=== PATIENT | male | born 1950 | race Caucasian/White ===

== ENCOUNTER → 2017-08-26 | Day surgery (SDC) | payer OTHER ==
[~2017-08-26] MED LIST: ASPIRIN81 MG PO; LIDOCAINE HCL 2% LOCAL INJ 5 ML SDV VIAL INJ ONE; LOVASTATIN20 MG PO; MIDAZOLAM HCL 2 MG/2 ML VIAL ONE; PROPOFOL IV EMULSION 10 MG/ML 50 ML VIAL ONE; SIMVASTATIN40 MG PO; ZOLPIDEM TARTRA10 MG PO
--- OUTSIDE RECORDS SUMMARY | 2017-08-26 07:06 | XMS REPORT | Clinical Summary ---
Author Author Garth [facility] Organization [facility] Address Unknown Phone Unavailable Care Team Providers Care Biofuels Manager Name Role Phone Tano Gayle MD PCP Allergies No Known Allergies Current Medications Prescription Sig. Disp. Refills Start End Date Status Date simvastatin (ZOCOR) 10 MG Take 10 mg by mouth Active tablet nightly. levothyroxine (SYNTHROID, Take 125 mcg by mouth Active LEVOXYL) 125 mcg tablet every morning. aspirin (ECOTRIN) 81 MG Take 81 mg by mouth Active enteric coated tablet daily. Active Problems Problem Noted Date Abdominal pain, chronic, right upper quadrant 08/15/2016 Encounters Date Type Specialty Care Team Description 11/12/2016 Refill General Surgery Nyla Monzon MD 10/10/2016 Hospital Radiology Nyla Monzon MD Cholecystitis Encounter 09/18/2016 Office Visit General Surgery Nyla Monzon MD Cholecystitis (Primary Dx) after 08/25/2016 Family History Medical History Relation Name Comments Ulcers Father Stroke Mother Relation Name Status Comments Father Mother Social History Tobacco Use Types Packs/Day Years Used Date Never Smoker Alcohol Use Drinks/Week oz/Week Comments Yes 1 Cans of 0.6 beer Sex Assigned at Date Recorded Not on file Last Filed Vital Signs Vital Sign Reading Time Taken Blood Pressure 130/76 09/18/2016 2:26 PM CDT Pulse 84 09/18/2016 2:26 PM CDT Temperature 36.9 C (98.4 F) 09/18/2016 2:26 PM CDT Respiratory Rate - - Oxygen Saturation - - Inhaled Oxygen - - Concentration Weight 116 kg (255 lb) 09/18/2016 2:26 PM CDT Height 185.4 cm (6' 1") 09/18/2016 2:26 PM CDT Body Mass Index 33.64 09/18/2016 2:26 PM CDT Plan of Treatment Health Maintenance Due Date Last Done Comments COLON CANCER SCREENING 06/23/1999 SHINGRIX VACCINE (#1) 06/23/1999 ZOSTER VACCINE 2009 PNEUMOCOCCAL 2014 POLYSACCHARIDE VACCINE AGE 65 AND OVER PNEUMOCOCCAL-13 2014 INFLUENZA VACCINE 10/29/2017 Implants Implanted Type Area Ceramic Design Engineer Device Expiration Model / Identifier Date Serial / Lot District Manager Clip Ligamax Endoscpc [facility] N/A: ETHICON 05/28/2021 EL5ML / Spu 5mm Med - [id number] Clips for Abdomen ENDO-SURGERY / Implanted: Qty: 1 on 08/15/2016 by Internal [id number] Nyla Monzon MD Use Results * [place] Hepatobiliary W Pharm (HIDA Scan w Pharm) (10/10/2016 9:43 AM) Specimen Performing Laboratory [facility] [address] [place] [id number] Narrative PROCEDURE: [place] HEPATOBILIARY W PHARM (HIDA SCAN W PHARM) INDICATION: K81.9 Cholecystitisunspecified, RUQ PAINACALCULOUS CHOLECYSTITIS SUSPECTED COMPARISON: Gallbladder ultrasound 08/12/2016 TECHNIQUE: The patient was injected with 6 mCi of [id number] and dynamic images of the abdomen were acquired for up to 1 hour. The patient was then injected with intravenous CCK per protocol and imaged for an additional 60 minutes. FINDINGS: Tracer activity is seen within the gallbladder and small bowel by one hour of imaging. With CCK infusion there is prompt contraction of the gallbladder with a calculated ejection fraction of 97%. IMPRESSION: 1.No scintigraphic evidence of acute cholecystitis or common bile duct obstruction. 2.Normal gallbladder response to CCK stimulation. [facility]-[id number] Procedure Note Interface, Radiology Results [facility] - 10/10/2016 11:19 AM CDT PROCEDURE: [place] HEPATOBILIARY W PHARM (HIDA SCAN W PHARM) INDICATION: K81.9 Cholecystitis unspecified, RUQ PAIN ACALCULOUS CHOLECYSTITIS SUSPECTED COMPARISON: Gallbladder ultrasound 08/12/2016 TECHNIQUE: The patient was injected with 6 mCi of [id number] and dynamic images of the abdomen were acquired for up to 1 hour. The patient was then injected with intravenous CCK per protocol and imaged for an additional 60 minutes. FINDINGS: Tracer activity is seen within the gallbladder and small bowel by one hour of imaging. With CCK infusion there is prompt contraction of the gallbladder with a calculated ejection fraction of 97%. IMPRESSION: 1. No scintigraphic evidence of acute cholecystitis or common bile duct obstruction. 2. Normal gallbladder response to CCK stimulation. [facility]-[id number] after 08/25/2016 Insurance Payer Benefit Subscriber ID Type Phone Address Plan / Group TEXAN[employer] TEXANPLUS xxxxxxxxx [facility] Home: [address] [facility] [place] [id number] HAJAEdwin Jorge Personal/F Self 1950 Home: [address] [facility] [place] [id number]
[2017-08-26 07:52] LABS: BASOPHILS # (AUTO) 0.1 (0.0-0.1); EOSINOPHILS # (AUTO) 0.3 (0.0-0.4); EOSINOPHILS % 2.8 % (0.0-6.0); HEMATOCRIT 41.8 % (38.2-49.6); HEMOGLOBIN 13.8 g/dL (14.0-18.0); LYMPHOCYTES # (AUTO) 2.7 (1.0-3.2); MEAN CORPUSCULAR HEMOGLOBIN 27.9 pg (28-32); MEAN CORPUSCULAR VOLUME 84.6 fL (81-99); MONOCYTES # (AUTO) 1.5 (0.2-0.8); MONOCYTES % 16.3 % (4.4-11.3); NEUTROPHILS # (AUTO) 4.7 (2.1-6.9); NEUTROPHILS % 50.7 % (38.7-80.0); PLATELET COUNT 454 x10e3/uL (140-360); RED BLOOD COUNT 4.94 x10e6/uL (4.3-5.7); RED CELL DISTRIBUTION WIDTH 17.7 % (11.7-14.4)
== END | disposition home or self-care (01) ==
LOC: OR 07:01
PROVIDERS: ATTEND Internal Medicine Gastroenterology
DX: K22.2 Esophageal obstruction (principal); K29.50 Unspecified chronic gastritis without bleeding; K21.0 Gastro-esophageal reflux disease with esophagitis; K44.9 Diaphragmatic hernia without obstruction or gangrene; R63.4 Abnormal weight loss; G47.33 Obstructive sleep apnea (adult) (pediatric); I49.1 Atrial premature depolarization; I49.9 Cardiac arrhythmia, unspecified; Z79.82 Long term (current) use of aspirin; Z68.31 Body mass index [BMI] 31.0-31.9, adult; Z90.81 Acquired absence of spleen; Z83.79 Family history of other diseases of the digestive system
CPT/HCPCS: 36415; 43239; 43249; 85025; 93005; J2001; J2250; 43233

== ENCOUNTER → 2017-10-07 | Day surgery (SDC) | payer OTHER ==
[~2017-10-07] MED LIST changes: +FENTANYL CITRATE/PF 100MCG/2 ML INJ ONE; +LEVOTHYROXINE125 MCG PO; -LIDOCAINE HCL 2% LOCAL INJ 5 ML SDV VIAL INJ ONE; +TEMAZEPAM30 MG PO
[2017-10-07 09:50] LABS: BASOPHILS # (AUTO) 0.1 (0.0-0.1); BASOPHILS % 1.8 % (0.0-1.0); EOSINOPHILS # (AUTO) 0.3 (0.0-0.4); EOSINOPHILS % 3.8 % (0.0-6.0); HEMATOCRIT 41.9 % (38.2-49.6); HEMOGLOBIN 13.8 g/dL (14.0-18.0); LYMPHOCYTES # (AUTO) 2.3 (1.0-3.2); LYMPHOCYTES % 30.3 % (18.0-39.1); MEAN CORPUSCULAR HEMOGLOBIN 27.9 pg (28-32); MEAN CORPUSCULAR HGB CONC 32.9 g/dL (31-35); MEAN CORPUSCULAR VOLUME 84.8 fL (81-99); MONOCYTES # (AUTO) 1.2 (0.2-0.8); MONOCYTES % 15.9 % (4.4-11.3); NEUTROPHILS # (AUTO) 3.7 (2.1-6.9); NEUTROPHILS % 48.1 % (38.7-80.0); PLATELET COUNT 465 x10e3/uL (140-360); RED BLOOD COUNT 4.94 x10e6/uL (4.3-5.7); RED CELL DISTRIBUTION WIDTH 16.3 % (11.7-14.4)
== END | disposition home or self-care (01) ==
LOC: OR 08:52
PROVIDERS: ATTEND Internal Medicine Gastroenterology
DX: K22.2 Esophageal obstruction (principal); K21.0 Gastro-esophageal reflux disease with esophagitis; K44.9 Diaphragmatic hernia without obstruction or gangrene; G47.33 Obstructive sleep apnea (adult) (pediatric); E03.9 Hypothyroidism, unspecified; Z79.82 Long term (current) use of aspirin; Z68.31 Body mass index [BMI] 31.0-31.9, adult; Z83.79 Family history of other diseases of the digestive system
CPT/HCPCS: 36415; 43249; 85025; J2250; 43450

== ENCOUNTER → 2017-10-21 | Day surgery (SDC) | payer OTHER ==
[~2017-10-21] MED LIST changes: +LIDOCAINE HCL 2% LOCAL INJ 5 ML SDV VIAL INJ ONE
== END | disposition home or self-care (01) ==
LOC: OR 05:28
PROVIDERS: ATTEND Internal Medicine Gastroenterology
DX: K22.2 Esophageal obstruction (principal); K21.0 Gastro-esophageal reflux disease with esophagitis; K44.9 Diaphragmatic hernia without obstruction or gangrene; G47.33 Obstructive sleep apnea (adult) (pediatric); I10 Essential (primary) hypertension; I49.1 Atrial premature depolarization; Z79.82 Long term (current) use of aspirin; Z68.31 Body mass index [BMI] 31.0-31.9, adult; Z90.81 Acquired absence of spleen; Z96.611 Presence of right artificial shoulder joint; Z83.79 Family history of other diseases of the digestive system
CPT/HCPCS: 43249; J2001; J2250; 43239

== ENCOUNTER 2018-01-07 12:20 | Inpatient (IN) | payer OTHER ==
[~2018-01-07] VITALS: Ht 185.4 cm; Wt 106.8 kg
[~2018-01-07 12:20] MED LIST changes: -FENTANYL CITRATE/PF 100MCG/2 ML INJ ONE; -LIDOCAINE HCL 2% LOCAL INJ 5 ML SDV VIAL INJ ONE; -MIDAZOLAM HCL 2 MG/2 ML VIAL ONE; -PROPOFOL IV EMULSION 10 MG/ML 50 ML VIAL ONE
[2018-01-07] MEDS ORDERED: SODIUM CHLORIDE 0.9% 1000ML 1,000 ML IV STA (12:25)
[2018-01-07] MEDS ORDERED: DEXILANT60 MG PO (12:30)
[2018-01-07] MEDS ORDERED: ASPIRIN 81 MG CHEW TAB PO ONE ×2 (12:30→13:45)
[2018-01-07] MEDS ORDERED: DILTIAZEM HCL 5 MG/ML 5 ML VIAL IV ONE (12:30)
[2018-01-07] MEDS ORDERED: OMEPRAZOLE40 MG PO (12:30)
[2018-01-07] MEDS ORDERED: BENTYL10 MG/1 ML PO (12:31)
[2018-01-07] MEDS ORDERED: DILTIAZEM HCL 5 MG/ML 5 ML VIAL IV STA (13:08)
[2018-01-07 13:13] LABS: BASOPHILS # (AUTO) 0.1 (0.0-0.1); BASOPHILS % 0.7 % (0.0-1.0); EOSINOPHILS # (AUTO) 0.2 (0.0-0.4); EOSINOPHILS % 1.7 % (0.0-6.0); HEMATOCRIT 45.8 % (38.2-49.6); HEMOGLOBIN 14.8 g/dL (14.0-18.0); LYMPHOCYTES # (AUTO) 3.5 (1.0-3.2); LYMPHOCYTES % 29.7 % (18.0-39.1); MEAN CORPUSCULAR HEMOGLOBIN 27.9 pg (28-32); MEAN CORPUSCULAR HGB CONC 32.3 g/dL (31-35); MEAN CORPUSCULAR VOLUME 86.4 fL (81-99); MONOCYTES # (AUTO) 1.5 (0.2-0.8); MONOCYTES % 12.4 % (4.4-11.3); NEUTROPHILS # (AUTO) 6.6 (2.1-6.9); NEUTROPHILS % 55.2 % (38.7-80.0); PLATELET COUNT 469 x10e3/uL (140-360); RED CELL DISTRIBUTION WIDTH 18.6 % (11.7-14.4)
[2018-01-07 13:35] LABS: ALBUMIN 3.9 g/dL (3.5-5.0); ALBUMIN/GLOBULIN RATIO 0.8 (0.8-2.0); ANION GAP 16.6 mmol/L (8-16); CALCIUM 10.1 mg/dL (8.4-10.2); CREATININE, SERUM 1.3 mg/dL (0.72-1.25); MAGNESIUM 1.9 MG/DL (1.3-2.1); POTASSIUM 3.6 mmol/L (3.5-5.1)
[2018-01-07 13:45] LABS: CREATINE KINASE MB 0.9 ng/mL (0-5.0)
[2018-01-07 13:58] LABS: FREE THYROXINE INDEX 2.5384 (1.4-3.8); THYROID STIMULATING HORMONE 6.922 uIU/mL (0.350-4.940)
[2018-01-07 17:25] VITALS: BP 147/98
[2018-01-07 17:47] VITALS: BP 147/98
[2018-01-07 17:49] VITALS: BP 147/98
[2018-01-07] MEDS: METOPROLOL TARTRATE 25 MG TAB PO SCH (18:04)
[2018-01-07] MEDS ORDERED: AMBIEN5 MG PO (19:00)
[2018-01-07 20:00] VITALS: BP 147/98
[2018-01-07 21:58] VITALS: BP 103/64
[2018-01-07] MEDS: ENOXAPARIN SODIUM INJ 100 MG/ML SYR SC SCH (21:59)
[2018-01-08] VITALS (8 sets, daily range): BP systolic 99–138; BP diastolic 59–85
[2018-01-08] MEDS: METOPROLOL TARTRATE 25 MG TAB PO SCH ×4 (00:20→17:45)
[2018-01-08 05:54] LABS: BASOPHILS # (AUTO) 0.1 (0.0-0.1); EOSINOPHILS # (AUTO) 0.5 (0.0-0.4); EOSINOPHILS % 4.3 % (0.0-6.0); HEMATOCRIT 42.2 % (38.2-49.6); HEMOGLOBIN 13.6 g/dL (14.0-18.0); LYMPHOCYTES # (AUTO) 5.5 (1.0-3.2); LYMPHOCYTES % 47.4 % (18.0-39.1); MEAN CORPUSCULAR HEMOGLOBIN 27.6 pg (28-32); MEAN CORPUSCULAR HGB CONC 32.2 g/dL (31-35); MEAN CORPUSCULAR VOLUME 85.8 fL (81-99); MONOCYTES # (AUTO) 1.5 (0.2-0.8); MONOCYTES % 12.9 % (4.4-11.3); NEUTROPHILS % 34.2 % (38.7-80.0); PLATELET COUNT 438 x10e3/uL (140-360); RED BLOOD COUNT 4.92 x10e6/uL (4.3-5.7); RED CELL DISTRIBUTION WIDTH 18.5 % (11.7-14.4)
[2018-01-08 06:27] LABS: CREATINE KINASE MB 0.9 ng/mL (0-5.0)
[2018-01-08 06:44] LABS: ALANINE AMINOTRANSFERASE 21 IU/L (0-55); ALBUMIN 3.5 g/dL (3.5-5.0); ALBUMIN/GLOBULIN RATIO 0.8 (0.8-2.0); ALKALINE PHOSPHATASE 59 IU/L (40-150); ANION GAP 14.1 mmol/L (8-16); BLOOD UREA NITROGEN 17 mg/dL (7-26); BUN/CREATININE RATIO 18 (6-25); CALCIUM 9.8 mg/dL (8.4-10.2); CARBON DIOXIDE 23 mmol/L (22-29); CHLORIDE 105 mmol/L (98-107); CREATININE, SERUM 0.94 mg/dL (0.72-1.25); EST GLOMERULAR FILTRATION RATE > 60 ML/MIN (60-); GLUCOSE 89 mg/dL (74-118); POTASSIUM 4.1 mmol/L (3.5-5.1); SODIUM 138 mmol/L (136-145)
[2018-01-08 08:04] LABS: EOSINOPHILS % (MANUAL) 3 % (0-7); METAMYELOCYTES % (MANUAL) 2 % (0-0)
[2018-01-08 08:05] LABS: HYPOCHROMASIA SLIGHT; LYMPHOCYTES % (MANUAL) 40 % (19-48); MONOCYTES % (MANUAL) 9 % (3.4-9.0); MYELOCYTES % (MANUAL) 5 % (0-0); NEUTROPHILS % (MANUAL) 33 % (40-74); RBC MORPHOLOGY COMMENT ABNORMAL
[2018-01-08 08:06] LABS: ANISOCYTOSIS SLIGHT; HOWELL-JOLLY BODIES FEW; PLATELET ESTIMATE ADEQUATE; PLATELET MORPHOLOGY COMMENT FEW LARGE
[2018-01-08 08:07] LABS: POIKILOCYTOSIS SLIGHT
[2018-01-08] MEDS ORDERED: NON-FORMULARY MEDICATION (Dicyclomine Hcl (Bentyl) 10 MG) PO SCH (08:45)
[2018-01-08] MEDS ORDERED: DICYCLOMINE HCL 10 MG CAP PO PRN (08:45)
--- NOTE | 2018-01-08 09:01 | Consultation ---
DATE OF CONSULTATION: January 08, 2018 CARDIOLOGY CONSULTATION REASON FOR CONSULTATION: AFib, new-onset. HPI: This is a pleasant 67-year-old male that presented with palpitations. According to the patient, he was having difficulty with swallowing. Saw a GI doctor, and they were planning to do a colonoscopy for him. He stated that he was at the outpatient lab doing some preop. They did an EKG and found that he was in AFib with RVR, and he was admitted for further evaluation. He also stated in 2014 he was told he had a history of arrhythmia, but did not know what type. He denied any chest pain, any headache or nausea. He stated off and on he has been having shortness of breath, dizziness and dyspnea with activity. Troponin was negative. EKG showed AFib, irregularly irregular. Chest x-ray showed no cardiopulmonary disease. PAST MEDICAL HISTORY: Arrhythmia, hypothyroidism, GERD, hyperlipidemia, and dysphagia. PAST SURGICAL HISTORY: Right ankle surgery times 2, left knee surgery, appendectomy, splenectomy, right elbow surgery, finger surgery on the right, right shoulder replacement, and back surgery. FAMILY HISTORY: Positive for hypertension. SOCIAL HISTORY: No smoking. No drinking. He lives at home with his dog. MEDICATIONS: He was on simvastatin, omeprazole, levothyroxine, dicyclomine, Ambien, and Dexilant. ALLERGIES: HE IS NOT ALLERGIC TO ANY MEDICATIONS. REVIEW OF SYSTEMS: Negative except as mentioned above. PHYSICAL EXAMINATION VITAL SIGNS: Temperature 97, heart rate 90, blood pressure 134/76, respirations 18, oxygen saturation 98% on room air. GENERAL: He is awake, alert and oriented times 3. HEENT: Mucous membrane moist. NECK: Supple. LUNGS: Bilateral clear to auscultation. CARDIOVASCULAR: Irregularly irregular. ABDOMEN: Soft. NEUROLOGICAL: Intact. EXTREMITIES: With no edema. LABS: Sodium 138, potassium 4.1, chloride 105, CO2 23, BUN 17, creatinine 0.94, glucose 89. White blood cell 11.5, hemoglobin 13.6, hematocrit 42.2, and platelets 438,000. IMPRESSION 1. Atrial fibrillation. 2. Hyperlipidemia. 3. Hypothyroidism. 4. Gastroesophageal reflux disease. ASSESSMENT AND PLAN 1. Heart rate is controlled in the 80s and 90s. He is asymptomatic. 2. Will start him on amiodarone. 3. Pending echogram to assess the LV and the valve function. 4. Will check lipid panel and TSH. 5. I discussed the risks and benefits of p.o. anticoagulation and he agreed. 6. If he is planning to get an inpatient colonoscopy, will go ahead and start p.o. anticoagulation after that. Further cardiac workup pending clinical course. Thank you for this consultation. DICTATED BY RACHEL MOSLEY NP Job#: [id number] ANTONIA
[2018-01-08] MEDS: PANTOPRAZOLE SOD 40 MG TABEC PO SCH (09:04)
[2018-01-08] MEDS: ENOXAPARIN SODIUM INJ 100 MG/ML SYR SC SCH ×2 (09:04→21:26)
[2018-01-08] MEDS: LEVOTHYROXINE SODIUM 125 MCG TAB PO SCH (09:04)
[2018-01-08] MEDS: AMIODARONE HCL 200 MG TAB PO SCH (09:04)
--- NOTE | 2018-01-08 09:13 | History and Physical ---
CHIEF COMPLAINT: New-onset atrial fibrillation. HISTORY: Patient is a 67-year-old male who came to [facility] for EKG showing atrial fibrillation with rapid rate. Therefore, the patient is admitted. He went into the emergency room. Apparently, he is going to have a colonoscopy soon. The patient is otherwise stable. PAST MEDICAL HISTORY: Hyperlipidemia, hypothyroidism, reflux, insomnia. PAST SURGICAL HISTORY: Noncontributory. SOCIAL HISTORY: Patient does not smoke or use alcohol. No recreational drugs. ALLERGIES: NO KNOWN ALLERGY. HOME MEDICATIONS: Dexilant, Bentall, levothyroxine, omeprazole, simvastatin, and Ambien. PHYSICAL EXAMINATION VITAL SIGNS: Temperature is 98, blood pressure is 120/57, pulse rate on admission was 147 with AFib and went up to 171, and now down to 105 with medication, respirations 18. GENERAL: The patient is not in acute distress. He is awake. HEENT: Normocephalic, atraumatic and anicteric. NECK: Supple grossly. PULMONARY: Clear. CARDIOVASCULAR: Irregularly irregular. Rate controlled. ABDOMEN: Soft. Positive bowel sounds. Nontender and nondistended. EXTREMITIES: No cyanosis or edema. NEUROLOGIC: No gross focal deficit. LABORATORY: Sodium is 138, potassium 4.1, chloride 105, bicarb 23, BUN 17, creatinine 0.9, glucose 89. WBC 11.5, hemoglobin 13.6, hematocrit 42.2, and platelets are 438,000. IMPRESSION 1. Atrial fibrillation, new-onset with rapid heart rate, now better controlled. 2. Pending colonoscopy. PLAN: Consultation with GI with Dr. Simpson for colonoscopy. After the colonoscopy, the patient may start anticoagulant therapy depending on if there is any polyps. The patient is otherwise stable at this time. Discussed with the patient at length. Job#: [id number] ANTONIA
--- NOTE | 2018-01-08 20:10 | Consultation ---
DATE OF CONSULTATION: January 08, 2018 HISTORY: This is a 67-year-old gentleman who presented to the hospital because of new-onset atrial fibrillation with rapid ventricular response. Patient apparently supposed to have a screening colonoscopy to be done and therefore GI consult is obtained to do a colonoscopy prior to anticoagulations. At this time, he denies any abdominal pain. He denies any nausea or vomiting. He is mildly anemic, hemoglobin is 13.6. His white count is little bit high. OTHER MEDICAL PROBLEMS: Actually significant for hyperlipidemia, hypothyroidism, reflux, and insomnia. ALLERGIES: NONE. SOCIAL HISTORY: No alcohol use. FAMILY HISTORY: Noncontributory. MEDICATIONS ON ADMISSION: Including Dexilant, Bentyl, levothyroxine, omeprazole, simvastatin, and Ambien. REVIEW OF SYSTEMS: Denies any chest pain at this point. Denies any shortness of breath. Denies any dysphagia or odynophagia. Denies any dysuria, hematuria, or any kind of syncopal episodes. PHYSICAL EXAMINATION: GENERAL: Patient is awake, alert, appeared to be stable, not in acute distress at this point. VITAL SIGNS: Afebrile currently with stable vital signs. HEAD, EYES, EARS, NOSE, AND THROAT: Normocephalic. Sclerae anicteric. NECK: Supple. HEART: Regular. LUNGS: Clear. ABDOMEN: Soft. There is no distention at this point and is nontender. EXTREMITIES: No clubbing. LAB VALUES: WBC of 11.5, hemoglobin of 13.6. CMP is normal. IMPRESSION: 1. Atrial fibrillation with rapid ventricular response. 2. Mild anemia. RECOMMENDATIONS: Continue on the cardiac workup at this point. Proceed with colonoscopy, further evaluation of the anemia. In the meantime, anticoagulations with Lovenox. Job#: [id number] cc:MD SAIRA MCKEON MD
[2018-01-08] MEDS: SIMVASTATIN 40 MG TAB PO SCH (21:26)
[2018-01-09] MEDS: METOPROLOL TARTRATE 25 MG TAB PO SCH ×4 (00:06→18:17)
[2018-01-09 05:30] VITALS: BP 124/78
[2018-01-09 07:52] VITALS: BP 111/71
[2018-01-09] MEDS: ENOXAPARIN SODIUM INJ 100 MG/ML SYR SC SCH ×2 (08:45→21:25)
[2018-01-09] MEDS: AMIODARONE HCL 200 MG TAB PO SCH (08:45)
[2018-01-09] MEDS: LEVOTHYROXINE SODIUM 125 MCG TAB PO SCH (08:45)
[2018-01-09] MEDS: PANTOPRAZOLE SOD 40 MG TABEC PO SCH (08:45)
[2018-01-09 11:51] VITALS: BP 121/86
[2018-01-09 16:01] VITALS: BP 141/87
[2018-01-09 20:00] VITALS: BP 135/62
[2018-01-09 20:05] VITALS: BP 135/62
[2018-01-09] MEDS: SIMVASTATIN 40 MG TAB PO SCH (21:25)
[2018-01-09] MEDS: ZOLPIDEM TARTRATE 5 MG TAB PO PRN (21:45)
[2018-01-10] VITALS (7 sets, daily range): BP systolic 127–141; BP diastolic 58–77
[2018-01-10] MEDS: METOPROLOL TARTRATE 25 MG TAB PO SCH ×4 (00:40→16:30)
[2018-01-10] MEDS ORDERED: INFLUENZA VIRUS VAC SPLIT INJ 0.5 ML SYR IM ONE (07:00)
[2018-01-10] MEDS: ENOXAPARIN SODIUM INJ 100 MG/ML SYR SC SCH ×2 (09:10→21:00)
[2018-01-10] MEDS: AMIODARONE HCL 200 MG TAB PO SCH (09:10)
[2018-01-10] MEDS: PANTOPRAZOLE SOD 40 MG TABEC PO SCH (09:10)
[2018-01-10] MEDS: LEVOTHYROXINE SODIUM 125 MCG TAB PO SCH (09:10)
[2018-01-10] MEDS: SIMVASTATIN 40 MG TAB PO SCH (21:00)
[2018-01-10] MEDS: ZOLPIDEM TARTRATE 5 MG TAB PO PRN (21:05)
[2018-01-11] VITALS (7 sets, daily range): BP systolic 113–165; BP diastolic 61–78
[2018-01-11] MEDS: METOPROLOL TARTRATE 25 MG TAB PO SCH ×5 (01:15→23:17)
[2018-01-11 06:14] LABS: BASOPHILS # (AUTO) 0.1 (0.0-0.1); BASOPHILS % 1.1 % (0.0-1.0); EOSINOPHILS # (AUTO) 0.5 (0.0-0.4); EOSINOPHILS % 5.7 % (0.0-6.0); HEMATOCRIT 36.2 % (38.2-49.6); HEMOGLOBIN 11.6 g/dL (14.0-18.0); LYMPHOCYTES # (AUTO) 3.5 (1.0-3.2); LYMPHOCYTES % 43.4 % (18.0-39.1); MEAN CORPUSCULAR HEMOGLOBIN 27.8 pg (28-32); MEAN CORPUSCULAR VOLUME 86.6 fL (81-99); MONOCYTES # (AUTO) 1.6 (0.2-0.8); NEUTROPHILS # (AUTO) 2.4 (2.1-6.9); NEUTROPHILS % 29.7 % (38.7-80.0); PLATELET COUNT 342 x10e3/uL (140-360); RED BLOOD COUNT 4.18 x10e6/uL (4.3-5.7); RED CELL DISTRIBUTION WIDTH 18.7 % (11.7-14.4)
[2018-01-11 06:33] LABS: ANION GAP 13.6 mmol/L (8-16); BLOOD UREA NITROGEN 11 mg/dL (7-26); BUN/CREATININE RATIO 13 (6-25); CALCIUM 9.2 mg/dL (8.4-10.2); CARBON DIOXIDE 22 mmol/L (22-29); CHLORIDE 109 mmol/L (98-107); CREATININE, SERUM 0.82 mg/dL (0.72-1.25); EST GLOMERULAR FILTRATION RATE > 60 ML/MIN (60-); GLUCOSE 86 mg/dL (74-118); POTASSIUM 3.6 mmol/L (3.5-5.1); SODIUM 141 mmol/L (136-145)
[2018-01-11] MEDS: AMIODARONE HCL 200 MG TAB PO SCH (09:25)
[2018-01-11] MEDS: PANTOPRAZOLE SOD 40 MG TABEC PO SCH (09:25)
[2018-01-11] MEDS: ENOXAPARIN SODIUM INJ 100 MG/ML SYR SC SCH (09:25)
[2018-01-11] MEDS: LEVOTHYROXINE SODIUM 125 MCG TAB PO SCH (09:25)
[2018-01-11 09:38] LABS: BAND NEUTROPHILS % (MANUAL) 1 %; EOSINOPHILS % (MANUAL) 12 % (0-7); LYMPHOCYTES % (MANUAL) 40 % (19-48); MONOCYTES % (MANUAL) 18 % (3.4-9.0); NEUTROPHILS % (MANUAL) 29 % (40-74); PLATELET ESTIMATE ADEQUATE; PLATELET MORPHOLOGY COMMENT NORMAL; RBC MORPHOLOGY COMMENT NORMAL
[2018-01-11] MEDS ORDERED: BISACODYL 5 MG TAB EC PO NR (14:00)
[2018-01-11] MEDS ORDERED: PEG (High)/E-LYTE SOLN 4,000 ML BTL PO NR (15:00)
[2018-01-11] MEDS: ZOLPIDEM TARTRATE 5 MG TAB PO PRN (21:22)
[2018-01-11] MEDS: SIMVASTATIN 40 MG TAB PO SCH (21:22)
[2018-01-11] MEDS ORDERED: ACETAMINOPHEN 325 MG TAB PO PRN (23:00)
[2018-01-12] VITALS (8 sets, daily range): BP systolic 122–170; BP diastolic 64–87
[2018-01-12] MEDS: METOPROLOL TARTRATE 25 MG TAB PO SCH ×3 (06:00→17:03)
[2018-01-12 06:27] LABS: BASOPHILS # (AUTO) 0.1 (0.0-0.1); BASOPHILS % 1.6 % (0.0-1.0); EOSINOPHILS # (AUTO) 0.3 (0.0-0.4); HEMATOCRIT 36.4 % (38.2-49.6); HEMOGLOBIN 11.7 g/dL (14.0-18.0); LYMPHOCYTES # (AUTO) 3.3 (1.0-3.2); LYMPHOCYTES % 44.8 % (18.0-39.1); MEAN CORPUSCULAR HEMOGLOBIN 28.1 pg (28-32); MEAN CORPUSCULAR HGB CONC 32.1 g/dL (31-35); MEAN CORPUSCULAR VOLUME 87.3 fL (81-99); MONOCYTES # (AUTO) 1.6 (0.2-0.8); MONOCYTES % 21.8 % (4.4-11.3); NEUTROPHILS # (AUTO) 2.1 (2.1-6.9); NEUTROPHILS % 27.7 % (38.7-80.0); PLATELET COUNT 353 x10e3/uL (140-360); RED BLOOD COUNT 4.17 x10e6/uL (4.3-5.7); RED CELL DISTRIBUTION WIDTH 19.1 % (11.7-14.4)
[2018-01-12 06:47] LABS: ALANINE AMINOTRANSFERASE 32 IU/L (0-55); ALBUMIN 3.3 g/dL (3.5-5.0); ALBUMIN/GLOBULIN RATIO 0.9 (0.8-2.0); ALKALINE PHOSPHATASE 50 IU/L (40-150); ANION GAP 15.8 mmol/L (8-16); BLOOD UREA NITROGEN 7 mg/dL (7-26); BUN/CREATININE RATIO 8 (6-25); CALCIUM 9.8 mg/dL (8.4-10.2); CARBON DIOXIDE 24 mmol/L (22-29); CHLORIDE 107 mmol/L (98-107); CREATININE, SERUM 0.87 mg/dL (0.72-1.25); EST GLOMERULAR FILTRATION RATE > 60 ML/MIN (60-); GLUCOSE 86 mg/dL (74-118); POTASSIUM 4.8 mmol/L (3.5-5.1); SODIUM 142 mmol/L (136-145)
[2018-01-12] MEDS: LEVOTHYROXINE SODIUM 125 MCG TAB PO SCH (08:30)
[2018-01-12] MEDS: AMIODARONE HCL 200 MG TAB PO SCH (08:58)
[2018-01-12] MEDS: PANTOPRAZOLE SOD 40 MG TABEC PO SCH (09:00)
[2018-01-12 13:39] LABS: EOSINOPHILS % (MANUAL) 4 % (0-7); LYMPHOCYTES % (MANUAL) 47 % (19-48); MONOCYTES % (MANUAL) 19 % (3.4-9.0); NEUTROPHILS % (MANUAL) 29 % (40-74)
[2018-01-12 13:40] LABS: ANISOCYTOSIS SLIGHT; PLATELET ESTIMATE ADEQUATE; PLATELET MORPHOLOGY COMMENT NORMAL; RBC MORPHOLOGY COMMENT NORMAL
[2018-01-12] MEDS ORDERED: PROPOFOL IV EMULSION 10 MG/ML 20 ML VIAL ONE (16:55)
[2018-01-12] MEDS ORDERED: MIDAZOLAM HCL 2 MG/2 ML VIAL ONE (17:31)
[2018-01-12] MEDS: ZOLPIDEM TARTRATE 5 MG TAB PO PRN (21:01)
[2018-01-12] MEDS: SIMVASTATIN 40 MG TAB PO SCH (21:01)
[2018-01-13] VITALS: BP 125/68
[2018-01-13] MEDS: METOPROLOL TARTRATE 25 MG TAB PO SCH ×2 (00:31→05:51)
[2018-01-13 04:00] VITALS: BP 126/64
[2018-01-13] MEDS: LEVOTHYROXINE SODIUM 125 MCG TAB PO SCH (05:51)
[2018-01-13 07:50] VITALS: BP 130/74
[2018-01-13 08:00] VITALS: BP 130/74
[2018-01-13] MEDS: PANTOPRAZOLE SOD 40 MG TABEC PO SCH (09:40)
[2018-01-13] MEDS: AMIODARONE HCL 200 MG TAB PO SCH (09:40)
[2018-01-13] MEDS ORDERED: AMIODARONE HCL200 MG PO (10:21)
[2018-01-13] MEDS ORDERED: XARELTO20 MG PO (10:21)
[2018-01-13] MEDS ORDERED: LOPRESSOR25 MG PO (10:22)
--- OUTSIDE RECORDS SUMMARY | 2018-01-13 12:40 | XMS REPORT | Clinical Summary ---
Author Author [facility]ang [facility] Organization [facility] Address Unknown Phone Unavailable Care Team Providers Care Staff Electrical Engineer Name Role Phone Leobardo Gayle MD PCP Allergies No Known Allergies [...] Abdominal pain, chronic, right upper quadrant 08/15/2016 Family History Medical History Relation Name Comments Ulcers Father Stroke Mother Relation Name Status Comments Father Mother Social History Tobacco Use Types Packs/Day Years Used Date Never Smoker Alcohol Use Drinks/Week oz/Week Comments Yes 1 Cans of 0.6 beer Sex Assigned at Date Recorded Not on file Last Filed Vital Signs Not on file Plan of Treatment Health Maintenance Due Date Last Done Comments COLON CANCER SCREENING 06/23/1999 SHINGRIX VACCINE (#1) 06/23/1999 ZOSTER VACCINE 2009 PNEUMOCOCCAL 2014 POLYSACCHARIDE VACCINE AGE 65 AND OVER PNEUMOCOCCAL-13 2014 INFLUENZA VACCINE 10/29/2017 Implants Implanted Type Area Medicine Man Device Expiration Model / Identifier Date Serial / Lot Head Of Digital Advertising & Integration Clip Ligamax Endoscpc [facility] N/A: ETHICON 05/28/2021 EL5ML / Spu 5mm Med - [id number] Clips for Abdomen ENDO-SURGERY / Implanted: Qty: 1 on 08/15/2016 by Internal [id number] Nyla Monzon MD Use Results Not on fileafter 01/06/2017 Insurance Payer Benefit Subscriber ID Type Phone Address Plan / Group TEXANPLUS TEXANPLUS xxxxxxxxx [facility] Home: [address] [facility] [place] [address] Edwin COHEN Personal/F Self 1950 Home: [address] [place] [address]
--- OUTSIDE RECORDS SUMMARY | 2018-01-13 12:48 | XMS REPORT | Clinical Summary ---
Author Author [facility]ang [facility] Organization [facility] Address Unknown Phone Unavailable Care Team Providers Care Chemistry Account Manager Name Role Phone Leobardo Gayle MD PCP [...] INFLUENZA VACCINE 10/29/2017 Implants Implanted Type Area Special Warfare Operator Device Expiration Model / Identifier Date Serial / Lot Mechanical Equipment Test Engineer Clip Ligamax Endoscpc [facility] N/A: ETHICON 05/28/2021 EL5ML / Spu 5mm Med - [id number] Clips for Abdomen ENDO-SURGERY / Implanted: Qty: 1 on 08/15/2016 by Internal [id number] Nyla Monzon MD Use Results Not on fileafter 01/06/2017 Insurance Payer Benefit Subscriber ID Type Phone Address Plan / Group TEX[employer]PLUS TEXANPLUS xxxxxxxxx [facility] Home: [address] [place] [address] Edwin COHEN Personal/F Self 1950 Home: [address] [place] [address]
--- NOTE | 2018-01-13 12:56 | Discharge Summary ---
CONSULTANTS: Dr. Jai Simpson and Dr. Tom Thomas. FINAL DIAGNOSES 1. Atrial fibrillation with rapid ventricular rate response. 2. Status post colonoscopy, only 2 polyps removed. SUMMARY: This 67-year-old male came to the hospital for preop for colonoscopy. Patient was found to have atrial fibrillation with rapid ventricular rate response. The patient was started on amiodarone, beta guillaume and Lovenox. The patient did better. Because the colonoscopy needed to be done, the patient was kept in the hospital pending for colonoscopy which he did yesterday, January 12, 2018. He only had small polyps and external hemorrhoids. That was removed. No complication. Patient is stable. He will go home with Lopressor 12.5 mg twice a day, amiodarone 200 mg daily and Xarelto 20 mg daily. The patient was instructed to begin Xarelto on January 14, 2018. Discussed with the patient at length. Medication description discussed with the patient. The patient also spoke with Dr. Thomas as well. Patient will follow up with Dr. Thomas in approximately [address] Gayle, his PCP, in approximately 1 to 2 weeks. The patient is stable and discharged home today as instructed. Please review the MAR on the chart. Job#: [id number]
== END 2018-01-13 11:18 | disposition home or self-care (01) | DRG 310 ==
LOC: ER 12:20 → ERHOLD 17:09 → OBSVTOIN 17:09 → MED/SURG 17:18
PROVIDERS: ADMIT Internal Medicine; ATTEND Internal Medicine
PROC: 0DBM8ZX Excision of Descending Colon, Via Natural or Artificial Opening Endoscopic, Diagnostic (ICD-10-PCS; 2018-01-12)
PROC: 0DBK8ZX Excision of Ascending Colon, Via Natural or Artificial Opening Endoscopic, Diagnostic (ICD-10-PCS; principal; 2018-01-12 15:06)
DX: I48.0 Paroxysmal atrial fibrillation (principal); R00.2 Palpitations; E78.5 Hyperlipidemia, unspecified; E03.9 Hypothyroidism, unspecified; K21.9 Gastro-esophageal reflux disease without esophagitis; G47.00 Insomnia, unspecified; D64.9 Anemia, unspecified; G47.33 Obstructive sleep apnea (adult) (pediatric); K63.5 Polyp of colon; K64.4 Residual hemorrhoidal skin tags
CPT/HCPCS: 36415; 45380; 80048; 80053; 80061; 82248; 82550; 82553; 83735; 83880; 84436; 84443; 84479; 84484; 85025; 88305; 93005; 93306; 99284; J1650; J2250; J7030